=== PATIENT | female | born 1970 | race Caucasian/White ===

== ENCOUNTER → 2016-07-31 14:38 | Outpatient (CLI) | payer BC ==
[2016-07-31 15:07] LABS: BASOPHILS 0.3 % (0.0-2.0); HEMATOCRIT 37.7 % (36.0-48.0); HEMOGLOBIN 12.4 g/dL (12-16); IMMATURE GRANULOCYTES 0.2 % (0-5); LYMPHOCYTES 21.4 % (15-50); MCH 29.5 pg (26.0-34.0); MCHC 32.9 g/dL (31.0-37.0); MCV 89.5 fL (80.0-100.0); MEAN PLATELET VOLUME 9.1 fL (7.4-10.4); MONOCYTES 7.8 % (2-11); NEUTROPHILS 69.3 % (40-80); PLATELET COUNT 296 10x3/uL (130-400); RBC 4.21 10x6/uL (4.00-5.40); RDW 12.4 % (11.5-14.5); WBC 8.9 10x3/uL (4.8-10.8)
[2016-07-31 15:22] LABS: APTT 29.5 SECONDS (22.8-39.4); INR 0.96 (0.85-1.17); PROTIME 12.6 SECONDS (11.6-15.0)
[2016-07-31 15:39] LABS: ALBUMIN 3.7 g/dL (3.4-5.0); BILIRUBIN - DIRECT 0.08 mg/dL (0.00-0.30); BILIRUBIN - INDIRECT 0.2 mg/dL (0.00-1.00); BILIRUBIN - TOTAL 0.28 mg/dL (0.2-1.3); CALCIUM 8.9 mg/dL (8.5-10.1); CARBON DIOXIDE 27.1 mmol/L (21.0-32.0); CREATININE - SERUM 0.9 mg/dL (0.6-1.3); LDL-HDL RATIO 1.7 ratio (1.5-3.5); POTASSIUM - SERUM 4.1 mmol/L (3.5-5.1); T4 THYROXINE 9.2 ug/dL (4.7-13.3); THYROID STIMULATING HORMONE 2.84 uIU/mL (0.36-3.74)
[2016-07-31 17:03] LABS: HELICOBACTER PYLORI IGG NEGATIVE (NEGATIVE)
[2016-08-01 09:18] LABS: FOLATE (FOLIC ACID) - SERUM 13.8 ng/mL (>3.0)
== END | disposition home or self-care (01) ==
LOC: D.LAB 14:38
PROVIDERS: Surgery
DX: Z00.00 Encounter for general adult medical examination without abnormal findings (principal)